=== PATIENT | male | born 1945 | race Caucasian/White ===

== ENCOUNTER → 2017-02-12 | Outpatient (REF) ==
[~2017-02-12] MED LIST: ANTIVERT 25MG25 MG PO; ASPIRIN 32325 MG/TAB; ASPIRIN 81M81 MG/TA2 PO; CLARITIN 1010 MG/TAB PO; COUMADIN4 MG PO; EPA FISH OIL1000 MG PO; FLOMAX 0.40.4 MG/CAP PO; MAGNESIUM500 MG PO; MASON NATURAL1200 MG PO; MEVACOR 20M20 MG/TAB PO; NITROSTAT0.4 MG/TAB SL; NORCO 325 MG-51 TAB PO; PRILOSEC 20MG20 MG PO; TYLENOL 500MG500 MG PO; VERELAN120 MG PO; XARELTO20 MG PO; ZETIA 10MG TAB10 MG PO
== END ==
LOC: ZLAB.WCH 10:49
DX: Z01.89 Encounter for other specified special examinations (principal)

== ENCOUNTER 2017-04-11 10:02 | Day surgery (SDC) | payer MEDICARE, BC ==
[~2017-04-11] VITALS: Ht 182.9 cm; Wt 115.8 kg
[2017-04-11] VITALS (10 sets, daily range): BP systolic 127–151; BP diastolic 69–89; PULSE 47–65; TEMP 97.8–99.1
[~2017-04-11 10:02] MED LIST changes: -ASPIRIN 81M81 MG/TA2 PO; -MAGNESIUM500 MG PO; -VERELAN120 MG PO
[2017-04-11 11:32] LABS: CALCIUM 8.8 mg/dL (8.4-10.2); CREATININE, serum 0.99 mg/dL (0.66-1.25); POTASSIUM 4.2 mmol/L (3.4-5.0)
[2017-04-11] MEDS ORDERED: ASPIRIN 81M81 MG/TA2 PO (11:37)
[2017-04-11] MEDS ORDERED: MAGNESIUM500 MG PO (11:38)
[2017-04-11] MEDS ORDERED: VERELAN120 MG PO (11:38)
[2017-04-12 02:30] VITALS: BP 115/65; PULSE 68; TEMP 98.2
[2017-04-12 06:36] VITALS: BP 118/67; PULSE 62; TEMP 98.4
[2017-04-12 10:21] VITALS: BP 124/60; BP 149/67; PULSE 106; PULSE 72; TEMP 98.2
== END 2017-04-12 13:15 | disposition home or self-care (01) ==
LOC: SDCO 10:02 → SURG 15:40 → SDCO 04-12 13:15
PROVIDERS: Nurse Anesthetist, Certified Registered
DX: N40.1 Benign prostatic hyperplasia with lower urinary tract symptoms (principal); R35.1 Nocturia; N35.9 Urethral stricture, unspecified; N39.0 Urinary tract infection, site not specified; R39.12 Poor urinary stream; K21.9 Gastro-esophageal reflux disease without esophagitis; I25.10 Atherosclerotic heart disease of native coronary artery without angina pectoris; I25.2 Old myocardial infarction; I10 Essential (primary) hypertension; Z86.73 Personal history of transient ischemic attack (TIA), and cerebral infarction without residual deficits; Z87.448 Personal history of other diseases of urinary system; Z87.891 Personal history of nicotine dependence; Z79.01 Long term (current) use of anticoagulants
CPT/HCPCS: OP; J0690; J1100; J2405; J2704; J2765; J3010; J7120

== ENCOUNTER 2021-08-01 15:24 | Emergency (ER) | payer MEDICARE, BC ==
[~2021-08-01] VITALS: Ht 182.9 cm; Wt 118.2 kg
[~2021-08-01 15:24] MED LIST changes: +ALTACE 10MG TAB10 MG PO; +ASPIRIN 81M81 MG/TA2 PO; +MAGNESIUM500 MG PO; +VERELAN PM100 MG PO; +VERELAN120 MG PO
[2021-08-01 16:02] LABS: BASO % 0.3 % (0.0-2.0); EOS # 0.1 (0.0-0.7); EOS % 1.3 % (0-4.0); GRAN # 4.4 (1.4-6.5); GRAN % 72.8 % (42.2-75.2); HEMATOCRIT 49.1 % (42.0-52.0); HEMOGLOBIN 16.7 g/dl (13.5-18.0); LYMPH % 16.5 % (20.0-51.0); MEAN CELL VOLUME 90 fl (80.0-100.0); MEAN CORPUSCULAR HEMOGLOBIN 31 pg (27.0-31.0); MEAN CORPUSCULAR HGB CONC 34 g/dl (33.0-37.0); MEAN PLATELET VOLUME 10.9 fl (7.4-10.4); MONO # 0.5 (0.1-0.6); MONO % 8.9 % (1.7-9.3); PLATELET COUNT 177 K/mm3 (130-400); RED BLOOD COUNT 5.47 M/mm3 (4.20-5.60); REDCELL DISTRIBUTION WIDTH-CV 13.7 % (11.5-14.5)
[2021-08-01 16:19] LABS: TROPONIN-I 0.014 ng/mL (0.000-0.035)
[2021-08-01 16:46] LABS: ALBUMIN 4.2 gm/dL (3.5-5.0); BILIRUBIN,TOTAL 0.5 mg/dL (0.0-1.0); CALCIUM 9.5 mg/dL (8.4-10.2); CREATININE, serum 1.04 (0.66-1.25); POTASSIUM 4.6 mmol/L (3.4-5.0); TOTAL PROTEIN 7.8 gm/dL (6.4-8.2)
[2021-08-01 18:54] LABS: COLLECTION METHOD CLEAN CATCH
[2021-08-01 19:04] LABS: MUCOUS Present /lpf; PH 6 (5-8); SQUAMOUS EPITHELIAL 0-2 /hpf; URINE APPEARANCE Clear; URINE BACTERIA None Seen /hpf; URINE BILIRUBIN Negative (NEGATIVE); URINE BLOOD 2+ (NEGATIVE); URINE COLOR Yellow; URINE GLUCOSE Negative (NEGATIVE); URINE KETONE Negative (NEGATIVE); URINE LEUKOCYTE ESTERASE Negative (NEGATIVE); URINE NITRATE Negative (NEGATIVE); URINE PROTEIN(semi-quant) 1+ (NEGATIVE); URINE UROBILINOGEN Negative (NEGATIVE)
[2021-08-01 19:52] VITALS: BP 123/83; PULSE 81; TEMP 97.9
== END 2021-08-01 19:30 | disposition home or self-care (01) ==
LOC: COL.ER 15:24
PROVIDERS: Emergency Medicine
DX: K21.00 Gastro-esophageal reflux disease with esophagitis, without bleeding (principal); K43.9 Ventral hernia without obstruction or gangrene; E86.0 Dehydration; I10 Essential (primary) hypertension; E78.5 Hyperlipidemia, unspecified; E11.9 Type 2 diabetes mellitus without complications; I25.2 Old myocardial infarction; Z87.891 Personal history of nicotine dependence; Z79.82 Long term (current) use of aspirin; Z79.01 Long term (current) use of anticoagulants; Z79.899 Other long term (current) drug therapy